=== PATIENT | female | born 1980 | race Caucasian/White ===

== ENCOUNTER 2018-03-20 14:58 | Inpatient (IN) | payer OTHER ==
[~2018-03-20] VITALS: Ht 154.9 cm; Wt 68.9 kg
[~2018-03-20 14:58] MED LIST: CLARITIN10 MG; DICY10CA; NASACORT AQ16.5 GM; OMEPRAZOLE20 M1; PRENATAL CAPLE1 EACH PO; ZANTAC300 MG; ZYRTEC10 MG
== END 2018-03-23 13:59 | disposition home or self-care (01) | DRG 775 ==
LOC: OB/GYN 14:58 → LDR 03-21 09:11 → OB/GYN 03-21 09:11
PROC: 10E0XZZ Delivery of Products of Conception, External Approach (ICD-10-PCS; principal; 2018-03-21)
PROC: 0W8NXZZ Division of Female Perineum, External Approach (ICD-10-PCS; 2018-03-21)
PROC: 4A1HXCZ Monitoring of Products of Conception, Cardiac Rate, External Approach (ICD-10-PCS; 2018-03-21)
DX: O99.824 Streptococcus B carrier state complicating childbirth (principal); O69.81X0 Labor and delivery complicated by cord around neck, without compression, not applicable or unspecified; Z3A.40 40 weeks gestation of pregnancy; Z37.0 Single live birth

== ENCOUNTER → 2019-03-30 | Outpatient (CLI) | payer OTHER | END | disposition home or self-care (01) | LOC: PRENATAL 14:00 | DX: O26.842 Uterine size-date discrepancy, second trimester (principal); O26.892 Other specified pregnancy related conditions, second trimester ==

== ENCOUNTER 2019-05-11 13:39 | Inpatient (IN) | payer OTHER ==
[~2019-05-11] VITALS: Ht 154.9 cm; Wt 71.2 kg
[2019-06-12] MEDS ORDERED: ACETAMINOPHEN325 M1 PO (12:51)
[2019-06-12] MEDS ORDERED: HYDROCORTISO453.6 G1 RECTAL (12:51)
[2019-06-12] MEDS ORDERED: Dermoplast SPRAY TOP (12:51)
== END 2019-06-12 15:15 | disposition home or self-care (01) | DRG 807 ==
LOC: OB/GYN 05-18 12:30 → LDR 06-10 06:00 → OB/GYN 06-10 14:49
PROVIDERS: ADMIT Specialist
PROC: 10E0XZZ Delivery of Products of Conception, External Approach (ICD-10-PCS; principal; 2019-06-10)
PROC: 10907ZC Drainage of Amniotic Fluid, Therapeutic from Products of Conception, Via Natural or Artificial Opening (ICD-10-PCS; 2019-06-10)
PROC: 0W8NXZZ Division of Female Perineum, External Approach (ICD-10-PCS; 2019-06-10)
PROC: 3E033VJ Introduction of Other Hormone into Peripheral Vein, Percutaneous Approach (ICD-10-PCS; 2019-06-10)
PROC: 4A1HXCZ Monitoring of Products of Conception, Cardiac Rate, External Approach (ICD-10-PCS; 2019-06-10)
DX: O80 Encounter for full-term uncomplicated delivery (principal); Z37.0 Single live birth; Z3A.39 39 weeks gestation of pregnancy; Z22.330 Carrier of Group B streptococcus